=== PATIENT | female | born 1950 | race Two or more races ===

== ENCOUNTER 2016-12-20 09:38 | Emergency (ER) | payer MEDICAID, MEDICARE, OTHER ==
[~2016-12-20] VITALS: Ht 160 cm; Wt 84.0 kg
[~2016-12-20 09:38] MED LIST: 1-ME1LIQ PO; CILO50TA PO; CLON-481 PO; GLYB2.5T3 PO; HYDR50TA5 PO; LOVA40TA PO; METF500 PO; METO100T PO; PRED20 PO; TRIA50 PO; TYLE3 PO
[2016-12-20 09:45] VITALS: BP 181/67; PULSE 88; RESP 16; TEMP 98.5; O2SAT 95
[2016-12-20] MEDS ORDERED: PRED20 PO ×2 (11:22→11:29)
[2016-12-20] MEDS ORDERED: TYLETAB34 PO ×2 (11:22→11:28)
--- NOTE | 2016-12-20 11:23 | PD ---
HPI Chief Complaint: Pain: Acute or Chronic Time Seen by Provider: 11:05 Travel History International Travel<30 days: No Contact w/Intl Traveler<30days: No Traveled to known affect area: No History of Present Illness HPI The patient speaks primarily [place]. The patient declines translation services . All translation was assisted by her son who speaks Bulgarian and [place]. 66- year-old female with history of gout, diabetes, hypertension, hyperlipidemia presents for evaluation of right first MTP joint pain. Symptom onset 2 days ago. Pain is a throbbing pain, constant, worse with walking. She has not tried using any medications for pain relief. She's had the same pain in the left right MTP joint approximately 3-4 times over the last several years each time he was diagnosed as a gouty attack. She reports her gouty attacks are usually treated with prednisone and pain medicines. She denies fevers, chills, nausea or vomiting. PFSH Past Medical History Medical History: Denies Significant Hx Hx Anticoagulant Therapy: No Cardiovascular Problems: Yes (HTN) High Cholesterol: Yes Diabetes: Yes Patient Takes Glucophage: Yes Diminished Hearing: No Gout: Yes Hypertension: Yes Influenza Vaccination: No ?: Not Menopausal: Yes Past Surgical History Surgical History: No Previous Surgery Genitourinary Surgery: Yes (BLADDER SUGERY) Social History Alcohol Use: No Tobacco Use: No Substance Use: No Allergies-Medications (Allergen,Severity, Reaction): Coded Allergies: No Known Allergies (Unverified , 12/20/16) Reported Meds & Prescriptions Reported Meds & Active Scripts Active Tylenol-Codeine #3 (Acetaminophen-Codeine) 300-30 mg Tab 1-2 Tab PO Q6H PRN Prednisone 20 Mg Tab 20 Mg PO BID Take 40 mg (2 tablets) daily for 5 days Review of Systems Except as stated in HPI: all other systems reviewed are Neg Physical Exam Narrative GENERAL: Well-nourished, well-developed patient. SKIN: Focused skin assessment warm/dry. HEAD: Normocephalic. EYES: No scleral icterus. No injection or drainage. NECK: Supple, trachea midline. No JVD or lymphadenopathy. CARDIOVASCULAR: Regular rate and rhythm without murmurs, gallops, or rubs. RESPIRATORY: Breath sounds equal bilaterally. No accessory muscle use. GASTROINTESTINAL: Abdomen soft, non-tender, nondistended. MUSCULOSKELETAL: No cyanosis, or edema. Mild edema and erythema of the left MTP joint. The joint is acutely tender when touched. BACK: Nontender without obvious deformity. No CVA tenderness. Data Data Last Documented VS Vital Signs Date Time Temp Pulse Resp B/P Pulse Ox O2 Delivery O2 Flow Rate FiO2 12/20/16 09:45 98.5 88 16 181/67 95 MDM Medical Decision Making Medical Screen Exam Complete: Yes Emergency Medical Condition: Yes Differential Diagnosis Gouty arthritis, pseudogout, contusion, less likely septic joint Narrative Course 66-year-old female presents emergency department for evaluation of left great toe pain. Patient has history of gout reports previous episodes of gouty arthritis within this joint. She reports her gouty attacks are usually treated favorably with prednisone and pain medicine. She denies fevers, chills, nausea or vomiting. Diagnosis Primary Impression: Gouty arthritis of toe Referrals: Primary Care Physician Patient Instructions: General Instructions, Gout (ED) Additional Instructions: Take medications as prescribed. Follow-up to primary doctor Return to the emergency department if new or worsening symptoms. Scripts Acetaminophen-Codeine (Tylenol-Codeine #3)300-30 mg Tab1-2 Tab PO Q6H PRN (PAIN ) #12 TAB Ref 0 Prov:Autumn Messer 12/20/16 Prednisone 20 Mg Tab20 Mg PO BID #6 TAB Take 40 mg (2 tablets) daily for 5 days Prov:Autumn Messer 12/20/16 Disposition: 01 DISCHARGE HOME Condition: Stable Autumn Messer Dec 20, 2016 11:23
[2016-12-20] MEDS ORDERED: KETOROLAC TROMETHAMINE 60 MG/2 ML (IM) VIAL IM ONE (11:30)
== END 2016-12-20 11:30 | disposition home or self-care (01) ==
LOC: PHED 09:38 → PHEFT 11:30
DX: M10.079 Idiopathic gout, unspecified ankle and foot (principal)
CPT/HCPCS: 99284; J1885